=== PATIENT | female | born 1995 | race Caucasian/White ===

== ENCOUNTER 2019-09-17 18:25 | Emergency (ER) | payer SELFPAY ==
[2019-09-17 18:30] VITALS: BP 121/78; PULSE 125; RESP 18; TEMP 37.6; O2SAT 99; BMI 25.6
--- NOTE | 2019-09-17 18:32 | US_ITS ---
WS: [id number] OBSTETRICAL ULTRASOUND LIMITED HISTORY: with abdominal pain COMPARISON: None available. Single intrauterine gestation in Cephalic presentation. Cervix is Closed and normal length. Cervical length is 3.6 cm. Normal amount of amniotic fluid surrounds the fetus. Placenta: Anterior, no previa or abruption. Placenta grade 0 Heart: 160 BPM. measurements: BPD = 4.9 cm = 20w5d HC = 18.5 cm = 20w6d AC = 16.5 cm = 21w4d FL = 3.5 cm = 21w0d EFW: 408 g. Measurements are internally concordant. AGA by ultrasound: 21w0d YESSENIA by ultrasound: 01/28/2020 US/US OB >= 14 weeks fetus [id number] IMPRESSION: 1. Single intrauterine gestation of 21w0d with an YESSENIA of 01/28/2020. 2. Normal cardiac activity.
--- NOTE | 2019-09-17 18:33 | W.ED.ABDPA2 ---
HPI - Abdominal Pain General: Chief Complaint: Abdominal Pain Stated Complaint: abdominal pain Time Seen by Provider: 09/17/19 18:27 Source: patient Mode of arrival: ambulatory Limitations: no limitations History of Present Illness: HPI narrative: 24-year-old female who is and she is unsure how far along she is. She states she has had suprapubic and right lower quadrant pain throughout the day. She has had vomiting no diarrhea. She is unsure she has had a fever. MD elicited complaint: abdominal pain Pertinent past history: none Onset (ago): hour(s) Pain Consistency: constant Location: RLQ and Suprapubic Severity: moderate Quality: cramping Radiation: none Migration to: no migration Exacerbating factors: nothing Relieving factors: nothing Associated Symptoms: Denies chills, diarrhea, dysuria, fever(s), nausea and vomiting Review of Systems Const: Denies: fever(s), chills, body aches or change in appetite Eyes: Denies: blurry vision or eye discomfort ENMT: Denies: throat pain or dental pain Card: Denies: chest pain Resp: Denies: dyspnea GI: Reports: abdominal pain; Denies: nausea, vomiting or diarrhea : Denies: dysuria Musc: Denies: neck pain or back pain Skin/Breast: Denies: rash Neuro: Denies: headache(s) Psych: Denies: depression Jung/Lymph: Denies: easy bruising All/Imm: Denies: urticaria PFSH ED PFSH: Social History Smoking and tobacco status: never smoked Physical Exam Const: COMMON NORMALS: no acute distress, patient oriented x3 and healthy appearing HENMT: COMMON NORMALS: normocephalic and atraumatic HEAD & SCALP: normocephalic and atraumatic Eye: COMMON NORMALS: Equal, round and reactive pupils present and EOMs intact bilaterally PUPIL: Yes Equal, round and reactive pupils present Neck/C-Spine: COMMON NORMALS: full ROM and supple Chest: COMMONS NORMALS: normal inspection of the chest and normal palpation of entire chest wall Resp: COMMON NORMALS: normal respiratory effort, No retractions, No use of accessory muscles and clear to auscultation bilaterally AUSCULTATION: clear to auscultation bilaterally Cardio: COMMON NORMALS: regular rate, regular rhythm and No murmurs present (Cardio) RATE: regular rate RHYTHM: regular rhythm GI: COMMON NORMALS: Normal to inspection, nondistended, normoactive bowel sounds present, Soft to palpation and no masses PALPATION: Yes Soft to palpation and Yes Tenderness to palpation present (GI) Extremity: COMMON NORMALS: normal to inspection and full ROM Neuro: COMMON NORMALS: patient oriented x3, moves all extremities and no focal motor deficits Psych: COMMON NORMALS: mental status grossly normal, Normal thought process present and cooperative THOUGHT PROCESS: Normal thought process present Skin: COMMON NORMALS: no rashes or lesions noted and no wounds GENERAL SKIN EXAM: no rashes or lesions noted Course Vital Signs: Vital signs: Vital Signs Temperature 99.6 F 09/17/19 18:30 Pulse Rate 108 H 09/17/19 22:37 Respiratory Rate 20 H 09/17/19 22:37 Blood Pressure 89/76 09/17/19 22:37 Pulse Oximetry 100 09/17/19 22:37 MDM - Abdominal Pain MDM Narrative: Medical decision making narrative: 24-year-old female presents here with abdominal pain. Was initially concerned about appendicitis as she was point tender in her right lower quadrant and had elevated white count. MRI here shows no appendicitis. She does have a urinary tract infection likely causing her pain. Patient is tolerated fluids here and I believe she is stable for discharge and she is requesting discharge. Patient given IM Rocephin and will place on oral antibiotics for home. Ultrasound of baby was normal. She is to return to the ER if she has any vomiting or worsening. She understands and agrees to the plan. Lab Data: Labs: Lab Results 09/17/19 09/17/19 09/17/19 Range/Units 18:38 18:38 18:38 WBC 19.0 H (4.0-10.0) 10^3/ uL RBC 3.98 L (4.1-5.3) 10^6/u L Hgb 12.5 (11.5-15.3) g/dL Hct 36.9 L (37.0-47.0) % MCV 92.7 (81-99) fL MCH 31.4 (28.0-34.0) pg MCHC 33.9 (30.0-36.0) g/dL RDW 12.5 (12.1-15.1) % Plt Count 183 (130-400) 10^3/c mm MPV 9.4 (7.4-10.4) fL Neut % (Auto) 84.3 % Lymph % (Auto) 7.0 % [place] % (Auto) 8.0 % Eos % (Auto) 0.0 % Baso % (Auto) 0.2 % Neut # (Auto) 16.0 H (1.8-7.7) 10^3/u L Lymph # (Auto) 1.3 (0.8-4.8) 10^3/u L [place] # (Auto) 1.5 H (0.2-0.9) 10^3/u L Eos # (Auto) 0.0 (0.0-0.8) 10^3/u L Baso # (Auto) 0.0 (0.0-0.1) 10^3/u L Nucleated RBC % (a uto) 0 % Nucleated RBCs # 0.0 /100WBC Sodium 132 L (136-145) mmol/L Potassium 3.5 (3.5-5.1) mmol/L Chloride 95 L (98-107) mmol/L Carbon Dioxide 23 (22-29) mmol/L Anion Gap 17.5 (5-19) BUN 5 L (6-20) mg/dL Creatinine 0.4 L (0.5-0.9) mg/dL GFR Calculation 197.8 H (90-130) mL/min Glucose 134 H (65-115) mg/dL Calculated Osmolal ity 272 L (285-295) mOsm/k g Calcium 9.6 (8.5-10.5) mg/dL Total Bilirubin 0.5 (0.15-1.2) mg/dL AST 17 (0-32) U/L ALT 8 (0-33) U/L Alkaline Phosphata se 62 (35-105) IU/L Total Protein 7.4 (6.6-8.7) g/dL Albumin 4.0 (3.5-5.2) g/dL Globulin 3.4 (1.3-4.6) g/dL Lipase 22 (13-60) U/L HCG, Qual Positive H (Negative) Urine Color (Yellow) Urine Appearance (CLEAR) Urine pH (5-7) Ur Specific Gravit y (1.005-1.030) Urine Protein (Negative) Urine Glucose (UA) (Normal) Urine Ketones (Negative) Urine Blood (Negative) Urine Nitrate (Negative) Urine Bilirubin (NEGATIVE) Urine Urobilinogen (Negative) mg/dL Ur Leukocyte Diana ase (Negative) Urine RBC (0-2) /hpf Urine WBC (0-5) /hpf Ur Squamous Epith Cells (0-5) Ur Transition Epit h Cell /hpf Urine Bacteria (NONE) 09/17/19 Range/Units 21:06 WBC (4.0-10.0) 10^3/ uL RBC (4.1-5.3) 10^6/u L Hgb (11.5-15.3) g/dL Hct (37.0-47.0) % MCV (81-99) fL MCH (28.0-34.0) pg MCHC (30.0-36.0) g/dL RDW (12.1-15.1) % Plt Count (130-400) 10^3/c mm MPV (7.4-10.4) fL Neut % (Auto) % Lymph % (Auto) % [place] % (Auto) % Eos % (Auto) % Baso % (Auto) % Neut # (Auto) (1.8-7.7) 10^3/u L Lymph # (Auto) (0.8-4.8) 10^3/u L [place] # (Auto) (0.2-0.9) 10^3/u L Eos # (Auto) (0.0-0.8) 10^3/u L Baso # (Auto) (0.0-0.1) 10^3/u L Nucleated RBC % (a uto) % Nucleated RBCs # /100WBC Sodium (136-145) mmol/L Potassium (3.5-5.1) mmol/L Chloride (98-107) mmol/L Carbon Dioxide (22-29) mmol/L Anion Gap (5-19) BUN (6-20) mg/dL Creatinine (0.5-0.9) mg/dL GFR Calculation (90-130) mL/min Glucose (65-115) mg/dL Calculated Osmolal ity (285-295) mOsm/k g Calcium (8.5-10.5) mg/dL Total Bilirubin (0.15-1.2) mg/dL AST (0-32) U/L ALT (0-33) U/L Alkaline Phosphata se (35-105) IU/L Total Protein (6.6-8.7) g/dL Albumin (3.5-5.2) g/dL Globulin (1.3-4.6) g/dL Lipase (13-60) U/L HCG, Qual (Negative) Urine Color Yellow (Yellow) Urine Appearance Hazy A (CLEAR) Urine pH 6 (5-7) Ur Specific Gravit y 1.015 (1.005-1.030) Urine Protein Neg (Negative) Urine Glucose (UA) Norm (Normal) Urine Ketones 2+ H (Negative) Urine Blood 3+ H (Negative) Urine Nitrate Positive H (Negative) Urine Bilirubin Neg (NEGATIVE) Urine Urobilinogen Norm (Negative) mg/dL Ur Leukocyte Diana ase 2+ H (Negative) Urine RBC 10-15 H (0-2) /hpf Urine WBC 80-100 H (0-5) /hpf Ur Squamous Epith Cells 10-15 H (0-5) Ur Transition Epit h Cell 0-4 /hpf Urine Bacteria 4+ H (NONE) Imaging Data ^: MRI: Radiologist's impression: [place] [address] Magnetic Resonance Report Signed Patient: Christiana Perez Unit #: [id number] : 1995 Age/Sex: 24 / F ADM Date: 09/17/19 Loc: ER Room/Bed: Attending Dr: Ordering Provider/Ordering MD: Eyal Winkler MD Date of Service: 09/17/19 Procedure(s): MR abdomen wo con [id number] Accession Number(s): [id number] Report Number: [id number] PROCEDURE INFORMATION: Exam: MR Abdomen Without Contrast Exam date and time: 09/17/2019 7:44 PM Age: 24 years old Clinical indication: Abdominal pain; Generalized; Patient HX: PT is pregnanat/ rlq pain for 1 day; Additional info: Abd pain TECHNIQUE: Imaging protocol: MR of the abdomen without contrast. COMPARISON: No relevant prior studies available. FINDINGS: Liver: No mass. Gallbladder and bile ducts: Unremarkable. No stones. No ductal dilation. Pancreas: Unremarkable. No ductal dilation. Spleen: Unremarkable. No splenomegaly. Adrenals: Unremarkable. No mass. Kidneys and ureters: Unremarkable. No solid mass. No hydronephrosis. Stomach and bowel: Visualized stomach and intestines are unremarkable. Appendix: No visible evidence for acute appendicitis. Intraperitoneal space: No free fluid in the cul-de-sac or pouch of [place]. Arteries: No abdominal aortic aneurysm. Reproductive: Twenty-one week intrauterine gestation. Bilateral simple appearing ovarian cysts. Bones/joints: Unremarkable. Soft tissues: Unremarkable. MR/MR abdomen wo con [id number] IMPRESSION: No visible evidence for acute appendicitis. Discharge Plan Discharge Patient Disposition: Home, Self-Care Clinical Impression: Acute cystitis during Condition: Stable Prescriptions: New Keflex 500 mg capsule 500 mg PO Q6H 7 Days Qty: 28 RF: 0 Reglan 10 mg tablet 10 mg PO Q6H PRN (Reason: nausea and vomiting) Qty: 20 RF: 0 No Action Multiple Vitamin, Womens Tablet 1 tab PO DAILY RF: 0 Discharge Orders: Discharge Order (Routine); Ordered 09/17/19 Ordered By: Eyal Winkler Referrals: Alexis Stanton MD [Physician] - 1-3 days Discharge Diet: Advance as tolerated Discharge Activity: Resume usual activity Patient Instructions: Urinary Tract Infection in Women (ED) Coding Level of Care Code ED Consumer Educator for Chg Fwd Exam Comprehensive
[2019-09-17 18:44] LABS: Basophils % 0.2 %; Hematocrit 36.9 % (37.0-47.0); Hemoglobin 12.5 g/dL (11.5-15.3); Lymphocytes # 1.3 10^3/uL (0.8-4.8); Mean Corpuscular HGB Conc 33.9 g/dL (30.0-36.0); Mean Corpuscular Hemoglobin 31.4 pg (28.0-34.0); Mean Corpuscular Volume 92.7 fL (81-99); Mean Platelet Volume 9.4 fL (7.4-10.4); Monocytes # 1.5 10^3/uL (0.2-0.9); Neutrophils % 84.3 %; Nucleated Red Blood Cells % 0 %; Platelet Count 183 10^3/cmm (130-400); Red Blood Count 3.98 10^6/uL (4.1-5.3); Red Cell Distribution Width 12.5 % (12.1-15.1)
--- NOTE | 2019-09-17 18:45 | PC.NURSE ---
Ultrasound at bedside.
[2019-09-17 18:53] LABS: HCG, Serum Qual Positive (Negative)
[2019-09-17 19:03] LABS: Alanine Aminotransferase 8 U/L (0-33); Alkaline Phosphatase 62 IU/L (35-105); Anion Gap 17.5 (5-19); Aspartate Amino Transferase 17 U/L (0-32); Blood Urea Nitrogen 5 mg/dL (6-20); Calcium 9.6 mg/dL (8.5-10.5); Carbon Dioxide 23 mmol/L (22-29); Chloride 95 mmol/L (98-107); Globulin 3.4 g/dL (1.3-4.6); Glomerular Filtration Rate 197.8 mL/min (90-130); Glucose 134 mg/dL (65-115); Lipase 22 U/L (13-60); Osmolality Calculated 272 mOsm/kg (285-295); Potassium 3.5 mmol/L (3.5-5.1); Sodium 132 mmol/L (136-145); Total Bilirubin 0.5 mg/dL (0.15-1.2); Total Protein 7.4 g/dL (6.6-8.7)
--- NOTE | 2019-09-17 19:04 | PC.NURSE ---
US in progress at bedside
[2019-09-17 19:05] VITALS: BP 108/69; PULSE 112; RESP 20; O2SAT 98
--- NOTE | 2019-09-17 19:19 | MRR_ITS ---
PROCEDURE INFORMATION: Exam: MR Abdomen Without Contrast Exam date and time: 09/17/2019 7:44 PM Age: 24 years old Clinical indication: Abdominal pain; Generalized; Patient HX: PT is pregnanat/ rlq pain for 1 day; Additional info: Abd pain TECHNIQUE: Imaging protocol: MR of the abdomen without contrast. COMPARISON: No relevant prior studies available. FINDINGS: Liver: No mass. Gallbladder and bile ducts: Unremarkable. No stones. No ductal dilation. Pancreas: Unremarkable. No ductal dilation. Spleen: Unremarkable. No splenomegaly. Adrenals: Unremarkable. No mass. Kidneys and ureters: Unremarkable. No solid mass. No hydronephrosis. Stomach and bowel: Visualized stomach and intestines are unremarkable. Appendix: No visible evidence for acute appendicitis. Intraperitoneal space: No free fluid in the cul-de-sac or pouch of [place]. Arteries: No abdominal aortic aneurysm. Reproductive: Twenty-one week intrauterine gestation. Bilateral simple appearing ovarian cysts. Bones/joints: Unremarkable. Soft tissues: Unremarkable. MR/MR abdomen wo con [id number] IMPRESSION: No visible evidence for acute appendicitis.
[2019-09-17 20:39] VITALS: BP 138/75; PULSE 123; RESP 20; O2SAT 100
--- NOTE | 2019-09-17 20:40 | PC.NURSE ---
Pt. to MRI and back via EMS with this sign writer letterer or painter. Pt. tolerated procedure well.
[2019-09-17 21:36] LABS: Add Urine Microscopic? YES; Bilirubin Urine Neg (NEGATIVE); Blood Urine 3+ (Negative); Glucose Urine UA Norm (Normal); Ketones Urine 2+ (Negative); Leukocyte Esterase Urine 2+ (Negative); Nitrate Urine Positive (Negative); Protein Urine Neg (Negative); Specific Gravity, Urine 1.015 (1.005-1.030); Urine Appearance Hazy (CLEAR); Urine Color Yellow (Yellow); Urobilinogen Urine Norm (Negative); pH Urine 6 (5-7)
[2019-09-17 21:40] LABS: Add Urine Culture? No; Bacteria Urine 4+; Transitional Epi Cells Urine 0-4 /hpf; WBC Urine 80-100 /hpf (0-5)
[2019-09-17] MEDS: lidocaine 1% INJ 20 mL INJECTION (22:12)
[2019-09-17] MEDS: cefTRIAXone 1,000 MG in sodium chloride 0.9% (plus) 50 ML 100 MG IV (22:12)
[2019-09-17 22:37] VITALS: BP 89/76; PULSE 108; RESP 20; O2SAT 100
--- NOTE | 2019-09-18 14:42 | DCPLANNER ---
Addendum entered by Mallorie Dhillon 09/26/19 15:04: all source collection manager called [facility] to confirm that a follow up appointment had been scheduled for patient. all source collection manager was told that clinic has tried several times to reach patient to schedule an appointment for patient. Messages were left for patient to return clinics phone call, patient did not return the clinics phone call. No appointment scheduled at this time. Original Note: all source collection manager had message to schedule a follow up appointment for patient with [facility]. all source collection manager called the clinic, spoke with [facility], gave clinic patients information. all source collection manager was told that patients information would be printed and reviewed. Clinic will call geriatric case manager and patient with appointment information.
== END 2019-09-17 22:42 | disposition home or self-care (01) ==
PROVIDERS: Emergency Provider Emergency Medicine
DX: O23.12 Infections of bladder in pregnancy, second trimester (principal); Z3A.21 21 weeks gestation of pregnancy
CPT/HCPCS: 12345; 36415; 74181; 76805; 80053; 81001; 83690; 84703; 85025; 96365; 99282; 99283; A9270; J0696; J2001